=== PATIENT | female | born 1930 | race Caucasian/White ===

== ENCOUNTER 2016-09-26 10:28 | Outpatient (CLI) | payer MEDICARE, OTHER ==
[~2016-09-26] VITALS: Ht 175.3 cm; Wt 78.2 kg
--- NOTE | ~2016-09-26 | HEMODYNAMI ---
PATIENT:KELLY MITCHELL MEDICAL RECORD: [id number] : 34 LOCATION:[facility] ADMISSION DATE: 09/26/16 Generatedon:09/26/201612:52 Patient name: KELLY MITCHELL Patient #: [id number] SSN: [id number] : 1930 Date of study: 09/26/2016 Page: Of Hemodynamic Procedure Report Patient Data Patient Demographics Procedure consent was obtained First Name: KELLY Gender: Female Last Name: PAULA : 1930 Middle Initial: F Age: 85 year(s) Patient #: [id number] Race: SSN: [id number] Additional ID: [id number] Contact details Address: [address] [place] [address] State: [place] City: [place] Zip code: [address] Past Medical History History of disease Date Diagnosis Comments CAD Peripheral vascular disease CHF PVD Allergies Allergen Reaction Date Comments Reported Codeine 12/11/2014 Codeine 09/26/2016 Admission Admission Data Admission Date: 09/26/2016 Admission Time: 10:28 Arrival Date: 09/26/2016 Arrival Time: 0:00 Admit Source: Other Height (in.): 71 BSA: 1.98 (m2) Height (cm.): 180.34 BMI: 23.99 (kg/m2) Weight (lbs.): 172 Weight (kg.): 78.02 Lab Results Lab Result Date: 09/26/2016 Lab Result Time: 0:00 Biochemistry Name Units Result Min Max BUN mg/dl 30 --(----)-* 7 18 Creatinine mg/dl 1.3 --(---*)-- 0.6 1.3 CBC Name Units Result Min Max Hemoglobin g/dl 12 *-(----)-- 13.5 17.5 Procedure Procedure Types Cath Procedure Peripheral Cath Diagnostic Procedure Cath Peripheral Sgsze-Ejashpz-Psw-Off Procedure Description Procedure Date Procedure Date: 09/26/2016 Procedure Start Time: 12:36 Procedure End Time: 12:51 Procedure Staff Name Function Ian Matthew MD Performing Physician Lucie Luis RT Scrub Rajwinder Santiago RN Nurse Jose Manuel Amaro RT Monitor Procedure Data Cath Procedure Fluoroscopy Diagnostic fluoroscopy Total fluoroscopy Time: 1.9 time: 1.9 min min Diagnostic fluoroscopy Total fluoroscopy dose: 285 dose: 285 mGy mGy Contrast Material Contrast Material Type Amount (ml) Isovue 300 101 Entry Location Entry Primary Successful Side Size Upsize Upsize Entry Closure Succes sful Closure Location (Fr) 1 (Fr) 2 (Fr) Remarks Device Remarks Femoral Right 5 Fr Exoseal artery Estimated blood loss: 10 ml Diagnostic catheters Device Type Used For End Catheter Placement Cordis Tempo 5Fr UF Procedure catheter Procedure Medications Medication Administration Route Dosage Oxygen NC 2 l/min Lidocaine 2% added to field 20 Heparin Flush Bag added to field 2 bags (1000units/500ml NS) 0.9% NaCl I.V. 100 ml/hr Versed I.V. 1 mg Fentanyl I.V. 50 mcg Versed I.V. 1 mg Fentanyl I.V. 50 mcg Hemodynamics Rest BSA: 1.98 (m2) HGB: 12 (g/dl) O2 Consumption: Estimated: 174.45 (ml/min) O2 Cons umption indexed: Estimated:88.11 (ml/min/m) Heart Rate: 67 (bpm) Pressure Samples Time Site Value (mmHg) Purpose Heart Use Rate(bpm) 12:38 AO 141/65(94) Snapshot 62 Snapshots Pre Cath Intra NCS Post Cath Vital Signs Time Heart Resp SPO2 etCO2 [id number] NIBP (mmHg) Rhythm Pain Sedation Rate (ipm) (%) (mmHg) (mmHg) Status Level (bpm) 12:19:48 64 17 98 0 0 132/77(116) NSR 0 (11) 10(A) , No pain 12:24:00 66 16 97 0 0 139/71(127) NSR 0 (11) 10(A) , No pain 12:28:16 64 19 98 0 0 130/73(112) NSR 0 (11) 10(A) , No pain 12:32:28 65 14 99 0 0 123/71(114) NSR 0 (11) 10(A) , No pain 12:36:38 66 16 96 0 0 126/75(105) NSR 0 (11) 10(A) , No pain 12:40:52 64 15 99 0 0 114/60(87) NSR 0 (11) 9(A) , No pain 12:45:01 68 15 100 0 0 125/64(100) NSR 0 (11) 9(A) , No pain 12:49:13 66 15 100 0 0 117/66(90) NSR 0 (11) 10(A) , No pain Medications Time Medication Route Dose Verified Delivered Reason Notes Effe ctiveness by by 12:28:51 Oxygen NC 2 Ina Buffie used for l/min Vipul Santiago RN procedure 12:28:59 Lidocaine 2% added 20ml Ian Ian for local to vial Vipul Matthew MD anesthetic field 12:29:05 Heparin Flush added 2 Ian Ian used for Bag to bags Vipul Matthew MD procedure (1000units/500ml field NS) 12:29:16 0.9% NaCl I.V. 100 Ian Buffie Per ml/hr Vipul Santiago RN physician 12:36:44 Versed I.V. 1 mg Ian Buffie for Vipul Santiago RN sedation 12:36:50 Fentanyl I.V. 50 Ian Buffie for mcg Vipul Santiago RN sedation 12:41:36 Versed I.V. 1 mg Ian Buffie for Vipul Santiago RN sedation 12:41:41 Fentanyl I.V. 50 Ian Buffie for mcg Vipul Santiago RN sedation Procedure Log Time Note 11:55:38 Patient Height : 71 cm 11:55:43 Patient Weight : 172 kg 11:55:46 Admit Source: Other 11:55:49 Arrival Date: 09/26/2016 12:00:00 AM 11:57:02 Diagnostic Cath status Elective 11:57:07 Rajwinder Santiago RN sent for patient. Start room use. 11:57:09 Time tracking: Regular hours 11:57:16 Plan of Care:Hemodynamics will remain stable., Cardiac rhythm will remain stable., Comfort level will be maintained., Respiratory function will remain adequate., Patient/ family verbilizes understanding of procedure., Procedure tolerated without complication., Recovers from procedure without complications.. 12:12:57 Patient received from Pre/Post Procedure Room to [facility] Alert and oriented. Tansferred to table in Supine position. 12:18:37 Warm blankets applied, and coty hugger turned on for patient comfort. 12:18:38 Correct patient and procedure confirmed by team. 12:18:41 Signed procedure consent form obtained from patient. 12:18:42 ECG and BP/O2 sat monitors applied to patient. 12:18:43 Vital chart was started 12:18:44 Baseline sample Acquired. 12:19:03 Baseline sample Acquired. 12:19:10 Full Disclosure recording started 12:23:10 Baseline sample Acquired. 12:23:13 Rhythm: sinus rhythm 12:23:29 H&P Date Dictated: 09/14/2016 Within 30 days and on chart., H&P Addendum completed by physician on day of procedure. (MUST COMPLETE FOR ALL OUTPATIENTS). 12:23:31 Pre-procedure instructions explained to patient. 12:23:32 Pre-op teaching completed and patient verbalized understanding. 12:23:37 Family in patients room. 12:25:00 Patient NPO since Breakfast. 12:25:08 Patient allergic to Codeine 12:25:12 Is the patient allergic to Iodine/contrast media? No. 12:25:15 Is patient on blood thinner?Yes 12:25:22 ACC The patient was administered the following blood thiners within the last 24 hours: ACCPlavix 12:25:25 Patient diabetic? No. 12:25:33 Patient not . Patient is over age 55. 12:25:36 ----Pre-sedation anethsthesia assessment.---- 12:25:38 Previous problem with sedation/anesthesia? No ? 12:25:41 Snore? No 12:25:42 Sleep apnea? No 12:25:46 Deviated septum? No 12:25:47 Opens mouth fully? Yes 12:25:48 Sticks out tongue? Yes 12:25:53 Airway obstruction? Yes COPD 12:26:01 Dentures? Yes IN TIGHT 12:26:10 Patient pain scale 0/10 ?. 12:26:23 IV patent on arrival in left hand with 0.9% NaCl at [facility]. 12:27:11 Lab Result : Creatinine 1.3 mg/dl 12:27:11 Lab Result : BUN 30 mg/dl 12:27:11 Lab Result : Hemoglobin 12 g/dl 12:27:18 Bilateral groins area was prepped with chlora-prep and draped in sterile fashion 12:27:20 Alarms reviewed by R. N. 12:27:21 Sharps counted by scrub and verified by R.N. 12:27:31 Use device set Femoral Dx 12:27:37 Acist Syringe opened to sterile field. 12:27:38 Bag Decanter opened to sterile field. 12:27:39 Medline Cath Pack opened to sterile field. 12:27:40 Terumo 5Fr [place] Sheath opened to sterile field. 12:27:43 St V[place]ay 260cm J .035 wire opened to sterile field. 12:27:44 Acist Hand Control opened to sterile field. 12:27:46 Acist Manifold opened to sterile field. 12:27:47 Tegaderm 4 x 4 opened to sterile field. 12:28:51 Oxygen 2 l/min NC was administered by Rajwinder Santiago RN; used for procedure; 12:28:59 Lidocaine 2% 20ml vial added to field was administered by Ian Matthew MD; for local anesthetic; 12:29:05 Heparin Flush Bag (1000units/500ml NS) 2 bags added to field was administered by Ian Matthew MD; used for procedure; 12:29:16 0.9% NaCl 100 ml/hr I.V. was administered by Rajwinder Santiago RN; Per physician; 12:32:07 Zero performed for pressure channel P1 12:32:14 Zero performed for pressure channel P1 12:34:42 Procedure started. 12:35:07 Physician arrived 12:35:07 --------ALL STOP TIME OUT------ 12:35:08 Final Timeout: patient, procedure, and site verified with staff and physician. All members of the team are in agreement. 12:35:11 Bilateral groins site verified by team. 12:35:15 Physical assessment completed. ASA score P 2 - A patient with mild systemic disease as per Ian Matthew MD. 12:35:20 Sedation plan: IV Moderate Sedation Versed, Fentanyl 12:36:05 Local anesthetic to right femoral artery with Lidocaine 2% by Ian Matthew MD.INITIAL ACCESS ONLY 12:36:33 A 5 Fr sheath was inserted into the Right Femoral artery 12:36:40 A IROCKE 5Fr UF catheter was advanced over the wire and used for Procedure. 12:36:44 Versed 1 mg I.V. was administered by Rajwinder Santiago RN; for sedation; 12:36:50 Fentanyl 50 mcg I.V. was administered by Rajwinder Santiago RN; for sedation; 12:38:00 Procedure type changed to Cath procedure, Peripheral Cath Diagnostic Procedure, Cath Peripheral, Argav-Onygikg-Sdb-Off 12:38:45 Abdominal Aortagram was performed. 12:40:50 AAA NOTED INFERIOR TO RENALS 12:41:36 Versed 1 mg I.V. was administered by Rajwinder Santiago RN; for sedation; 12:41:41 Fentanyl 50 mcg I.V. was administered by Rajwinder Santiago RN; for sedation; 12:42:17 CATHETER PULLED DOWN TO BIFURCATION 12:42:21 Left leg runoff performed. 12:42:57 Right leg runoff performed. 12:43:50 Catheter removed. 12:44:14 Cordis 5Fr Exoseal opened to sterile field. 12:44:32 Sheath removed intact; hemostasis achieved with Exoseal to the Right Femoral artery. 12:44:35 Procedure ended.(Physican Out) 12:45:11 Fluoroscopy time 01.90 minutes. 12:45:32 Fluoroscopy dose: 285 mGy 12:45:32 Flurop Dose total: 285 12:45:39 Contrast amount:Isovue 300 101ml. 12:45:41 Sharps counted by scrub and verified by R.N. 12:49:53 Post-procedure physical assessment completed. ASA score P 2 - A patient with mild systemic disease as per Ian Mtathew MD. 12:50:10 Post procedure rhythm: sinus rhythm 12:50:13 Estimated blood loss: 10 ml 12:50:28 Post procedure instruction explained to patient.Patient verbalizes understanding. 12:51:06 Insertion/operative site no bleeding no hematoma. 12:51:09 Post-op/insertion site Right Femoral artery dressed using a 4 x 4 and Tegaderm. 12:51:11 Procedure and supply charges have been captured, reviewed, submitted and are correct. 12:51:13 Vital chart was stopped 12:51:14 See physician's report for complete and final results. 12:51:17 Report given to Pre/Post Procedure Room. 12:51:22 Patient transfered to Pre/Post Procedure Room with Stretcher. 12:51:27 Procedure ended. 12:51:27 Full Disclosure recording stopped 12:51:30 End room use (Document Last) Device Usage Item Manufacture Quantity Catalog Hospital Part Current Minimal Lot# / Name Number Charge Number Stock Stock Dylan bruner# Code Acist Acist 1 62538 173973 603912 [id number] 20 Syringe [employer] Bag Microtek 1 2002S 687293 09513 366008 5 Decanter [employer]. Medline Cardinal 1 [id number] 42168 495943 5 Cath Health Pack Terumo Terumo 1 [id number] 076768 852436 217372 [address] [place] [address] Vijay 1 934692 091371 227246 690930 30 260cm J .035 wire Acist Acist 1 08287 080060 664480 829121 5 Hand Medical [employer] Systems Inc Acist Acist 1 32255 539385 938797 336031 5 Manifold Medical [employer] Inc Tegaderm 3M 1 1626W 552195 709148 073577 5 4 x 4 Cordis Cardinal 1 [id number] 528378 619602 631175 10 Tempo Health 5Fr UF catheter Cordis Cardinal 1 EX500 735419 759797 869900 10 5Fr Health Exoseal Signature Audit [place] Stage Time Signature Unsigned Intra-Procedure 09/26/2016 Jose Manuel Amaro 12:52:42 PM RT(R) (CV) Signatures Monitor : Jose Manuel Amaro RT Signature : Date : Time : [address] [address]
[~2016-09-26 10:28] MED LIST: BAYER CHEWABLE81 MG PO; BIOTIN5 MG PO; CO Q-10200 MG PO; COZAAR50 MG PO; CYCLOBENZAPRINE10 MG PO; CYMBALTA60 MG PO; ICAPS AREDS1 TAB.SA PO; MAXZIDE 75/501 TAB PO; NEURONTIN 300300 MG PO
[2016-09-26 10:58] VITALS: BP 129/62; Ht 175.3 cm; Wt 78.2 kg
[2016-09-26] MEDS ORDERED: REQUIP0.5 MG PO (11:05)
[2016-09-26] MEDS ORDERED: ZANAFLEX4 MG PO (11:06)
[2016-09-26 11:27] LABS: BASOPHILS 0.6 % (0-2); EOSINOPHILS 2.9 % (0-7); IMMATURE GRANULOCYTES 0.3 % (0-5); LYMPHOCYTES 24.6 % (15-50); MCH 28.4 pg (26.0-34.0); MCHC 32.4 g/dL (31.0-37.0); MCV 87.7 fL (80.0-100.0); MEAN PLATELET VOLUME 10.2 fL (7.4-10.4); MONOCYTES 6.3 % (2-11); NEUTROPHILS 65.3 % (40-80); PLATELET COUNT 292 10x3/uL (130-400); RBC 4.22 10x6/uL (4.00-5.40); RDW 13.3 % (11.5-14.5); WBC 6.8 10x3/uL (4.8-10.8)
[2016-09-26 12:22] LABS: ANION GAP 15.7 mmol/L (8-16); CALCIUM 9.4 mg/dL (8.5-10.1); CARBON DIOXIDE 22.3 mmol/L (21.0-32.0); CREATININE - SERUM 1.3 mg/dL (0.6-1.3)
--- NOTE | 2016-09-26 13:15 | NUR ---
RIGHT GROIN CDI, NO HEMATOMA OR BLEEDING NOTED, SOFT TO TOUCH
--- NOTE | 2016-09-26 13:50 | NUR ---
NO CHANGE IN RIGHT GROIN, DAUGHTER AT SIDE, DENIES NEEDS
--- NOTE | 2016-09-26 15:15 | NUR ---
IV D'C WITH CATH TIP INTACT, WRITTEN AND VERBAL INSTRUCTIONS GIVEN TO PT AND DAUGHTER- UNDERSTOOD. DENIES PAIN OR FURTHUR NEEDS
--- NOTE | 2016-09-28 13:54 | OP ---
PATIENT NAME: KELLY MITCHELL MEDICAL RECORD: [id number] :34 LOCATION:D[facility]CAT ADMISSION DATE: SURGEON: KOREY WILD M.D. DATE OF OPERATION: 09/26/2016 REFERRING PHYSICIAN: Silvetsre Stevens DO. PROCEDURES PERFORMED: Aortofemoral runoff. INDICATION: An 85-year-old woman who presents with symptoms lifestyle-limiting claudication. Recent arterial duplex revealed abnormalities in lower extremities. EQUIPMENT USED: A 5-Mexican UF catheter. TECHNIQUE: A 5-Mexican sheath was inserted in retrograde fashion in the right common femoral artery. Next, the UF catheter was advanced over the wire, placed at the level of T12. Power injection was performed to visualize the distal aorta. Next, the catheter was pulled down to the level of the bifurcation. Aortofemoral runoff was then performed to visualize the right and left lower extremities. FINDINGS: The distal aorta is of good caliber. Each kidney receives a single arterial supply. There is an infrarenal aneurysm noted below the renal arteries. The vessel is quite tortuous at this point and its greatest diameter appears to be at least 4-5 cm. There does not appear to be any thrombus in the aneurysm. The right common femoral artery is large in caliber and widely patent. Right common femoral artery is large in caliber and widely patent. Right superficial artery demonstrates mild irregularities, but is otherwise widely patent. Popliteal artery is large in caliber and widely patent. Below the knee, there appears to be at least 2-vessel runoff to the ankle. Left common iliac artery is large in caliber and widely patent. Left common femoral artery is large in caliber and widely patent. Left superficial artery has mild irregularities in the mid segment. Left popliteal artery is large in caliber and widely patent. Below the knee, there appears to be at least 2-vessel runoff performed in the posterior tibial and peroneal arteries. IMPRESSION: Large infrarenal abdominal aortic aneurysm. There is no evidence of any thrombus. This may account for her symptoms of claudication. This may be reducing aortic inflow pressure. RECOMMENDATIONS: We will proceed with CTA of the abdomen and pelvis to further evaluate the aneurysm. TRANSINT:[id number] Voice Confirmation ID: [id number] DOCUMENT ID: [id number] OPERATIVE REPORT [id number] KELLY MITCHELL KOREY WILD M.D. at 1354 CC: [id number] DICTATION DATE: 09/26/16 1302 PIG LEAD MELTER HELPER: 09/26/16 1615 DEP CLI 09/26/16 [id number] [place] [address]
== END 2016-09-26 15:30 | disposition home or self-care (01) ==
LOC: D.CATH 10:28
PROVIDERS: Internal Medicine Cardiovascular Disease
DX: I70.213 Atherosclerosis of native arteries of extremities with intermittent claudication, bilateral legs (principal); I25.10 Atherosclerotic heart disease of native coronary artery without angina pectoris; I10 Essential (primary) hypertension; Z01.812 Encounter for preprocedural laboratory examination

== ENCOUNTER → 2016-09-28 11:36 | Outpatient (CLI) | payer MEDICARE, OTHER ==
[2016-09-26 10:58] VITALS: BMI 25.4
[~2016-09-28 11:36] MED LIST changes: +REQUIP0.5 MG PO; +ZANAFLEX4 MG PO
== END | disposition home or self-care (01) ==
LOC: D.CT 11:36
DX: I71.4 Abdominal aortic aneurysm, without rupture (principal)

== ENCOUNTER → 2016-10-26 21:40 | Outpatient (CLI) | payer MEDICARE, OTHER ==
[2016-09-26 10:58] VITALS: BMI 25.4
[2016-10-26 22:05] LABS: CALCIUM 9.1 mg/dL (8.5-10.1); CARBON DIOXIDE 27.2 mmol/L (21.0-32.0); CREATININE - SERUM 1.2 mg/dL (0.6-1.3); POTASSIUM - SERUM 4.2 mmol/L (3.5-5.1)
== END | disposition home or self-care (01) ==
LOC: D.LABREF 21:40
PROVIDERS: Internal Medicine Cardiovascular Disease
DX: R60.9 Edema, unspecified (principal); I10 Essential (primary) hypertension

== ENCOUNTER → 2017-06-14 08:37 | Outpatient (CLI) | payer MEDICARE, OTHER ==
[2016-09-26 10:58] VITALS: BMI 25.4
[~2017-06-14 08:37] MED LIST changes: +CARAFATE1 G PO; +PROTONIX40 MG PO
== END | disposition home or self-care (01) ==
LOC: D.US 08:37
DX: I71.4 Abdominal aortic aneurysm, without rupture (principal)

== ENCOUNTER 2017-07-18 17:00 | Emergency (ER) | payer MEDICARE, OTHER ==
[2016-09-26 10:58] VITALS: BMI 25.4
[~2017-07-18 17:00] MED LIST changes: -CARAFATE1 G PO; -PROTONIX40 MG PO
== END 2017-07-18 19:04 | disposition left against medical advice (07) ==
LOC: D.ER 17:00
DX: R11.2 Nausea with vomiting, unspecified (principal)

== ENCOUNTER 2017-07-18 22:11 | Observation (INO) | payer MEDICARE, OTHER ==
[~2017-07-18] VITALS: Ht 172.7 cm; Wt 85.3 kg
--- NOTE | ~2017-07-18 | DS ---
PATIENT:KELLY MITCHELL :34 MEDICAL RECORD: [id number] DISCHARGE SUMMARY ADMISSION DATE: 07/19/17 DISCHARGE DATE: 07/20/17 ADMISSION DIAGNOSES: Dysphagia, epigastric pain, persistent nausea and vomiting, unable to tolerate anything by mouth. DISCHARGE DIAGNOSES: Dysphagia, esophageal stricture, erosive esophagitis, esophageal ulcer. HOSPITAL COURSE: The patient was admitted from the clinic with dysphagia, Globus sensation, nausea and vomiting for 3 days. GI was consulted. The patient was started on IV Protonix and Carafate. Underwent EGD, which showed erosive reflux esophagitis, esophageal ulcer, esophageal stricture at the GE junction. This was dilated. Biopsies were obtained. The patient is feeling much better, has been cleared for discharge by GI. DISCHARGE MEDICATIONS: Per med rec. DISPOSITION: The patient is discharged to home in significantly improved condition. PHYSICIAL EXAMINATION: VITAL SIGNS ON DISCHARGE: Temperature 97.7, blood pressure 121/72, heart rate 63, respirations 18, O2 sat 95% room air. HEART: Regular rate and rhythm. LUNGS: Clear and symptom free. ABDOMEN: Soft, nontender. Bowel sounds positive. EXTREMITIES: Present times 4. NEUROLOGIC: Intact. Family members present, agree with discharge, anxious to go home. LABORATORY DATA: CBC on discharge: White count 6.7, hemoglobin 11.2, hematocrit 35.5, platelets 270. Chemistry shows a sodium of 142, potassium 3.7, chloride 108, bicarb 26.3, BUN 28, creatinine 1.2. DISCHARGE INSTRUCTIONS: The patient is instructed clear liquid diet, advance as tolerated. Carafate b.i.d. and Protonix 40 mg b.i.d. have been added. The patient will follow up in the clinic. She already has an appointment scheduled. Follow up with GI as scheduled as needed. See chart for further details. TRANSINT:[id number] Voice Confirmation ID: [id number] DOCUMENT ID: [id number] YEFRI CRISTOBAL DO at 0811 CC: [id number] DICTATION DATE: 07/20/17807 LEGAL OPERATIONS MANAGER: 07/20/17 0928 DIS IN 07/20/17 [id number] [place] [address]
[2017-07-18 23:45] LABS: HEMOGLOBIN 12.9 g/dL (12-16); LYMPHOCYTES 28.9 % (15-50); MCH 27.6 pg (26.0-34.0); MCHC 32.3 g/dL (31.0-37.0); MCV 85.5 fL (80.0-100.0); MEAN PLATELET VOLUME 10.7 fL (7.4-10.4); NEUTROPHILS 61.3 % (40-80); PLATELET COUNT 260 10x3/uL (130-400); RBC 4.68 10x6/uL (4.00-5.40); RDW 13.6 % (11.5-14.5); WBC 6.8 10x3/uL (4.8-10.8)
[2017-07-18 23:58] LABS: ALBUMIN 3.4 g/dL (3.4-5.0); ANION GAP 13.7 mmol/L (8-16); BILIRUBIN - TOTAL 0.4 mg/dL (0.2-1.3); CALCIUM 9.3 mg/dL (8.5-10.1); CARBON DIOXIDE 25.9 mmol/L (21.0-32.0); CREATININE - SERUM 1.4 mg/dL (0.6-1.3); POTASSIUM - SERUM 3.6 mmol/L (3.5-5.1); PROTEIN - SERUM 7.3 g/dL (6.4-8.2)
[2017-07-19 02:58] LABS: APPEARANCE CLOUDY (CLEAR); BILIRUBIN NEGATIVE (NEGATIVE); COLOR YELLOW (YELLOW); GLUCOSE NEGATIVE (NEGATIVE); KETONE NEGATIVE (NEGATIVE); NITRITE POSITIVE (NEGATIVE); PROTEIN NEGATIVE (NEGATIVE); SPECIFIC GRAVITY 1.015 (1.005-1.020); UROBILINOGEN NORMAL (NORMAL)
[2017-07-19 02:59] LABS: BACTERIA MANY /hpf (NONE SEEN); EPITHELIAL CELLS 0-5 /hpf (0-5); RED CELLS - URINE 0-5 /hpf (0-5)
[2017-07-19 06:51] LABS: BASOPHILS 0.9 % (0-2); EOSINOPHILS 5.6 % (0-7); HEMATOCRIT 36.3 % (36.0-48.0); HEMOGLOBIN 11.7 g/dL (12-16); IMMATURE GRANULOCYTES 0.3 % (0-5); LYMPHOCYTES 25.6 % (15-50); MCH 27.9 pg (26.0-34.0); MCHC 32.2 g/dL (31.0-37.0); MCV 86.4 fL (80.0-100.0); MEAN PLATELET VOLUME 10.5 fL (7.4-10.4); MONOCYTES 9.8 % (2-11); NEUTROPHILS 57.8 % (40-80); PLATELET COUNT 257 10x3/uL (130-400); RDW 13.8 % (11.5-14.5)
[2017-07-19 07:33] LABS: ANION GAP 13.6 mmol/L (8-16); BILIRUBIN - TOTAL 0.4 mg/dL (0.2-1.3); CALCIUM 8.8 mg/dL (8.5-10.1); CARBON DIOXIDE 25.2 mmol/L (21.0-32.0); CREATININE - SERUM 1.4 mg/dL (0.6-1.3); POTASSIUM - SERUM 3.8 mmol/L (3.5-5.1)
[2017-07-20 04:17] LABS: BASOPHILS 0.6 % (0-2); EOSINOPHILS 5.5 % (0-7); HEMATOCRIT 35.5 % (36.0-48.0); HEMOGLOBIN 11.2 g/dL (12-16); IMMATURE GRANULOCYTES 0.1 % (0-5); LYMPHOCYTES 26.7 % (15-50); MCH 27.5 pg (26.0-34.0); MCHC 31.5 g/dL (31.0-37.0); MCV 87.2 fL (80.0-100.0); MEAN PLATELET VOLUME 10.7 fL (7.4-10.4); MONOCYTES 7.5 % (2-11); NEUTROPHILS 59.6 % (40-80); PLATELET COUNT 270 10x3/uL (130-400); RBC 4.07 10x6/uL (4.00-5.40); RDW 13.6 % (11.5-14.5); WBC 6.7 10x3/uL (4.8-10.8)
[2017-07-20 04:38] LABS: ALBUMIN 2.8 g/dL (3.4-5.0); ANION GAP 11.4 mmol/L (8-16); BILIRUBIN - TOTAL 0.3 mg/dL (0.2-1.3); CALCIUM 8.4 mg/dL (8.5-10.1); CARBON DIOXIDE 26.3 mmol/L (21.0-32.0); CREATININE - SERUM 1.2 mg/dL (0.6-1.3); POTASSIUM - SERUM 3.7 mmol/L (3.5-5.1)
[2017-07-20 04:45] VITALS: Ht 172.7 cm; Wt 85.3 kg
[2017-07-20 05:36] VITALS: BP 121/72
[2017-07-20] MEDS ORDERED: PROTONIX40 MG PO (07:57)
[2017-07-20] MEDS ORDERED: CARAFATE1 G PO (08:00)
[2017-07-20 08:36] VITALS: BP 132/63
== END 2017-07-20 10:28 | disposition home or self-care (01) ==
LOC: D.ER 22:11 → OBSVTIME 07-19 00:21 → D.EDHOLD 07-19 00:21 → D.M2 07-19 17:50
PROVIDERS: Family Medicine
DX: K22.2 Esophageal obstruction (principal); K44.9 Diaphragmatic hernia without obstruction or gangrene; K22.10 Ulcer of esophagus without bleeding; K29.70 Gastritis, unspecified, without bleeding; I10 Essential (primary) hypertension; J44.9 Chronic obstructive pulmonary disease, unspecified; E86.0 Dehydration; F32.9 Major depressive disorder, single episode, unspecified

== ENCOUNTER → 2018-11-26 07:52 | Outpatient (CLI) | payer MEDICARE, OTHER ==
[~2018-11-26 07:52] MED LIST changes: +CARAFATE1 G PO; +PROTONIX40 MG PO
== END | disposition home or self-care (01) ==
LOC: D.US 07:52
PROVIDERS: ATTEND Internal Medicine Cardiovascular Disease
DX: I71.4 Abdominal aortic aneurysm, without rupture (principal)

== ENCOUNTER → 2018-11-30 07:56 | Outpatient (CLI) | payer MEDICARE, OTHER | END | disposition home or self-care (01) | LOC: D.US 07:56 | PROVIDERS: ATTEND Internal Medicine Cardiovascular Disease | DX: I73.9 Peripheral vascular disease, unspecified (principal) ==

== ENCOUNTER → 2018-12-10 12:53 | Outpatient (CLI) | payer MEDICARE, OTHER | END | disposition home or self-care (01) | LOC: D.CT 12:53 | PROVIDERS: ATTEND Internal Medicine Cardiovascular Disease | DX: I73.9 Peripheral vascular disease, unspecified (principal) ==